=== PATIENT | female | born 1995 | race Caucasian/White ===

== ENCOUNTER 2024-06-24 08:18 | Outpatient (AMB) | payer OTHER, SELFPAY ==
[2024-06-24 08:37] VITALS: BP 105/74; PULSE 66; RESP 12; TEMP 36.5; O2SAT 99; BMI 28.3
--- NOTE | 2024-06-24 08:37 | AMB.GYNCLNOT ---
Vital Signs 06/24/24 08:37 Height 1.65 m Height Method Stated Weight 77.167 kg Weight Measurement Method Standing Scale BMI 28.3 BP 105/74 Blood Pressure Source Automatic Cuff Blood Pressure Location Left Upper Arm Position Sitting Respiration 12 Pulse 66 Pulse Source Monitor Temp 97.7 F Temp Source Oral Pulse Oximetry (%) 99 Oxygen Delivery Method Room Air Allergies/Home Meds Allergies & Medications Allergies No Known Allergies Allergy (Verified 06/24/24 08:38) Medication Reconciliation No Known Home Medications 06/24/24 [History Confirmed 06/24/24] Intake Visit Data Collection New Patient or Established: New Patient not seen in past [address] 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 1. Little interest or pleasure in doing things: not at all 2. Feeling down, depressed, or hopeless: not at all Total score: 0 PHQ-9 3. Trouble falling or staying asleep, or sleeping too much: Not at all 4. Feeling tired or having little energy: Not at all 5. Poor appetite or overeating: Not at all 6. Feeling bad about yourself - or that you are a failure or have let yourself or your family down: Not at all 7. Trouble concentrating on things, such as reading the newspaper or watching television: Not at all 8. Moving or speaking so slowly that other people could have noticed? - Or the opposite - being so fidgety or restless that you have been moving around a lot more than usual: not at all 9. Thoughts that you would be better off or of hurting yourself in some way: Not at all Total score: 0 Source: Developed by Drs. Chris Burnett, Mary Lou Vasquez, Milan Ashley and colleagues, with an educational jahaira from [employer]. Depression screen completed yes Social History Living Situation History Marital Status: Single Lives With: Family Housing: House Tobacco History Smoking Status: Never smoker Second Hand Smoke Exposure: Yes Alcohol History Alcohol Intake: Current Alcohol Intake Frequency: holidays/special occasions only Substance Use History Substance Use: none Domestic Abuse History Do You Feel Safe at Home: Yes Past Medical History Past Medical History Have you ever been diagnosed with any of the following: Neurological Problems Cerebrovascular Accident (CVA): No Transient Ischemic Attacks (TIA): No Dementia: No Alzheimer's Disease: No Parkinson's Disease: No Brain Tumor: No Meningitis: No Seizures: No Epilepsy: No Multiple Sclerosis: No Cerebral Palsy: No Amyotrophic Lateral Sclerosis (ALS/Sherley Gehrig's): No Guillain-Haskins Syndrome: No Spina Bifida: No Paralysis: No Peripheral Neuropathy: No Coleman's Palsy: No Subdural Hematoma: No Migraine: No Head Trauma: No Spinal Cord Injury: No Traumatic Brain Injury: No Cardiology Problems Myocardial Infarction: No Cardiac Arrhythmia: No Atrial Fibrillation: No Angina: No Heart Murmur: No Coronary Artery Disease: No Atherosclerotic Heart Disease: No Peripheral Vascular Disease: No Hypercholesterolemia: No Aneurysm: No Congestive Heart Failure: No Congenital Heart Disease: No Valvular Heart Disease: No Rheumatic Fever: No Cardiomyopathy: No Edema: No Pericarditis: No Cellulitis: No Deep Vein Thrombosis: No Hypertension: No Hypotension: No Varicose Veins: No Respiratory Problems Chronic Obstructive Pulmonary Disease (COPD): No Asthma: Yes Bronchitis: No Emphysema: No Pneumonia: No Pulmonary Fibrosis: No Tuberculosis: No Pulmonary Embolism: No Pulmonary Edema: No Sleep Apnea: No CPAP Dependent: No Respiratory Aspiration: No Dyspnea: No Orthopnea: No Hx Cough: No Cough: No Wheezing: No Chest Deformities: No Smoking: No Smoking Cessation Counseling: No Smoking Exposure: Yes Tobacco Use: No Clubbing: No Exposure to Respiratory Irritants: No Intubation: No Stomache/Intestinal Problems Liver Cancer: No Hepatitis: No Cirrhosis: No Pancreatic Cancer: No Pancreatitis: No Celiac Disease: No Gall Bladder Disease: No Gastrointestinal Bleed: No Esophageal Varices: No To's Esophagus: No Colitis: No Ulcerative Colitis: No Diverticulitis: No Diverticulosis: No Ulcer: No Colorectal Cancer: No Irritable Bowel: No Crohn's Disease: No Obstructive Bowel: No Hiatal Hernia: No Hemorrhoids: No Gastroesophageal Reflux Disease: No Polyps: No Genital/Urinary Problems Chronic Kidney Disease: No Renal Disease: No Reproductive Problems Breast Cancer: No Endometriosis: No Fibroids: No Musculoskeletal Problems Muscular Dystrophy: No Myasthenia Gravis: No Marfan's Syndrome: No Head,Eye,Nose,Throat Problems Cataracts: No Glaucoma: No Blind: No Retinal Detachment: No Endocrine Problems Diabetes Mellitus Type 1: No Diabetes Mellitus Type 2: No Hypoglycemia: No Rony's Syndrome: No [place]'s Disease: No Hyperthyroidism: No Hypothyroidism: No Thyroid Cancer: No Blood Problems Anemia: No Leukemia: No Hemophilia: No Thalassemia: No Sickle Cell Disease: No Clotting Problems: No Psychologic Problems Schizophrenia: No Recreational Drug Use: No Bipolar Disorder: No Depression: No Anxiety: No Other Problems Hospitalization: No Autoimmune Disease: No Down Syndrome: No Autism: No Developmental Delay: No Cosmetic Surgery: No Surgical History Angioplasty: No Appendectomy: No Bariatric Surgery: No History of Present Illness HPI Narrative 29yo G0 presents for Pap smear. Has established PCP at [facility]. History of mild intermittent asthma managed with albuterol as needed No gynecologic complaints. Last Pap smear was more than 10 years Review of Systems Review of Systems Systems Reviewed: All systems reviewed, normal except as documented Exam General Limitations: no limitations General Appearance: alert, in no apparent distress, comfortable, cooperative, healthy appearing, well developed and well groomed Head Head exam: atraumatic, normocephalic and normal inspection Neck Neck exam: Present normal inspection, full ROM and trachea midline Chest Chest inspection: Present normal inspection and symmetric chest wall rise Abdominal Abdominal exam: Present soft and normal bowel sounds External exam: Present normal external exam Speculum exam: Present normal speculum exam Bimanual exam: Present normal bimanual exam Extremities Extremities exam: Present normal inspection and full ROM Back Back exam: Present normal inspection and full ROM Neuro Neurological exam: Present alert, oriented X3 and CN II-XII intact Skin Skin exam: Present warm, dry, intact and normal color Assessment & Plan Diagnosis / Problem List (1) Encounter for screening for malignant neoplasm of cervix: Status: Acute Plan: Pap smear performed Benign exam without any positive findings Preventative health counseling including contraception and routine preventative health reviewed with the patient Follow-up with results Office Procedures OB Clinic LOC & Office Proc's Nursing/Assessment Patient Status: Initial/New Patient OB Clinic Nursing Assessment: Medication Reconciliation, Update PMH in EMR and Vital Signs OB Clinic Coordination of Care: Complex Care and Chronic Disease 1-5, Consent,records obtained, informed consent, Education Simp Pt/Fam, Lab and Imaging orders and Staff clarify orders Miscellaneous Interventions: Pelvic/Pap Smear Set up New Patient Charge New Patient Point Assignment: 1119 New Patient Point Charge: CONTACT REPRESENTATIVE Level 4 ([id number]) CASE RESOURCE MANAGER: Papsmear Pap Smear Procedure Chaparone in room during procedure?: Yes Papsmear completed: yes
== END 2024-06-24 08:48 | disposition home or self-care (01) ==
LOC: HODSOBC 08:18
PROVIDERS: PCP Family Medicine; Supervising Provider Obstetrics & Gynecology; Visit Provider Obstetrics & Gynecology
DX: Z12.4 Encounter for screening for malignant neoplasm of cervix (principal); J45.20 Mild intermittent asthma, uncomplicated
CPT/HCPCS: 99204; G0463